=== PATIENT | female | born 1970 | race Caucasian/White ===

== ENCOUNTER 2018-02-10 14:01 | Emergency (ER) | payer OTHER ==
[2018-02-10] MEDS ORDERED: ACETAMINOPHEN 500 MG TABLET PO ONE (14:30)
--- NOTE | 2018-02-10 14:37 | Emergency Department Record ---
History of Present Illness - General Chief Complaint: Fall Injury Stated Complaint: PT FEEL IN RESTROOM Time Seen by Provider: 02/10/18 14:19 Source: Patient, RN notes reviewed Mode of Arrival: Wheelchair - History of Present Illness Initial Comments: patient fell in the bathroom in the hospital and is complaining of right shoulder pain and low back pain and the pain is located from T8 down to the sacrum. Patient denies head or neck pain. MD Complaint: Fall Onset/Timin -: Minutes(s) Fall From: Standing When Fall Occurred: Just prior to arrival Fall Witnessed: No Place Fall Occurred: Other Loss of Consciousness: None Prolonged Down Time?: No Symptoms Prior to Fall: None Location: Back Severity: Moderate Severity scale (1-10): 7 Context: Tripped/slipped - [place] Coma Scale Eye Response: (4) Open spontaneously Motor Response: (6) Obeys commands Verbal Response: (5) Oriented [place] Total: 15 - Related Data Home Medications Medication Instructions Recorded Confirmed Last Taken Citalopram Hydrobromide [Celexa] 20 mg PO DAILY 02/10/18 02/10/18 02/10/18 Hydroxychloroquine Sulfate 200 mg PO DAILY 02/10/18 02/10/18 02/10/18 [Plaquenil] Levothyroxine Sodium [Synthroid] 150 mcg PO DAILY 02/10/18 02/10/18 02/10/18 Magnesium Oxide [Magnesium] 400 mg PO DAILY 02/10/18 02/10/18 02/10/18 Metoprolol Tartrate [Lopressor] 25 mg PO DAILY 02/10/18 02/10/18 02/10/18 Previous Rx's Medication Instructions Recorded Tramadol HCl [Ultram] 50 mg PO Q8H #9 tab 02/10/18 Allergies Allergy/AdvReac Type Severity Reaction Status Date / Time shellfish derived Allergy ANAPHYLAXIS Verified 02/10/18 14:12 morphine AdvReac BEHAVIORAL Verified 02/10/18 14:12 CHANGES Travel Screening - Travel/Exposure Within Last 30 Days Have you traveled within the last 30 days?: No - Travel/Exposure Within Last Year Have you traveled outside the [place] in the last year?: Yes Location Detail:: [place] - Additonal Travel Details Have you been exposed to anyone with a communicable illness?: No - Travel Symptoms Symptom Screening: None Review of Systems Reviewed: No additional complaints except as noted below Constitutional: Reports: As per HPI. Denies: Chills, Fever, Malaise, Night sweats, Weakness, Weight change Eyes: Reports: As per HPI. Denies: Eye discharge, Eye pain, Photophobia, Vision change ENT: Reports: As per HPI. Denies: Congestion, Dental pain, Ear pain, Epistaxis , Hearing loss, Throat pain Respiratory: Reports: As per HPI. Denies: Cough, Dyspnea, Hemoptysis, Stridor, Wheezes Cardiovascular: Reports: As per HPI. Denies: Arrhythmia, Chest pain, Dyspnea on exertion, Edema, Murmurs, Orthopnea, Palpitations, Paroxysmal nocturnal dyspnea, Rheumatic Fever, Syncope Endocrine: Reports: As per HPI. Denies: Fatigue, Heat or cold intolerance, Polydipsia, Polyuria Gastrointestinal: Reports: As per HPI. Denies: Abdominal pain, Constipation, Diarrhea, Hematemesis, Hematochezia, Melena, Nausea, Vomiting Genitourinary: Reports: As per HPI. Denies: Abnormal menses, Discharge, Dyspareunia, Dysuria, Frequency, Hematuria, Incontinence, Retention, Urgency Musculoskeletal: Reports: As per HPI, Back pain, Other (right shoulder pain). Denies: Arthralgia, Gout, Joint swelling, Myalgia, Neck pain Skin: Reports: As per HPI. Denies: Bruising, Change in color, Change in hair/ nails, Lesions, Pruritus, Rash Neurological: Reports: As per HPI. Denies: Abnormal gait, Confusion, Headache, Numbness, Paresthesias, Seizure, Tingling, Tremors, Vertigo, Weakness Psychiatric: Reports: As per HPI. Denies: Anxiety, Auditory hallucinations, Depression, Homicidal thoughts, Suicidal thoughts, Visual hallucinations Hematological/Lymphatic: Reports: As per HPI. Denies: Anemia, Blood Clots, Easy bleeding, Easy bruising, Swollen glands Past Medical History - SOCIAL HISTORY Smoking Status: Never smoker Alcohol Use: None Drug Use: None - RESPIRATORY Hx Respiratory Disorders: No - CARDIOVASCULAR Hx Cardio Disorders: Yes Hx Hypertension: Yes - NEURO Hx Neuro Disorders: No - GI Hx GI Disorders: No - Hx Genitourinary Disorders: No - ENDOCRINE Hx Endocrine Disorders: Yes Hx Thyroid Disease: Yes Comment:: Lupus - MUSCULOSKELETAL Hx Musculoskeletal Disorders: Yes Hx Back Injury: Yes - PSYCH Hx Psych Problems: No - HEMATOLOGY/ONCOLOGY Hx Hematology/Oncology Disorders: No Family Medical History Any Significant Family History?: Yes Hx Diabetes: Father, Grandparents Hx HTN: Father, Grandparents Physical Exam - General General Appearance: Alert, Oriented x3, Cooperative, No acute distress - Head Head exam: Normal inspection - Eye Eye exam: Normal appearance, PERRL Pupils: Normal accommodation - ENT ENT exam: Normal exam, Mucous membranes moist, Normal external ear exam, Normal orophraynx, TM's normal bilaterally Ear exam: Normal external inspection. negative: External canal tenderness Nasal Exam: Normal inspection. negative: Discharge, Sinus tenderness Mouth exam: Normal external inspection, Tongue normal Teeth exam: Normal inspection. negative: Dental caries Throat exam: Normal inspection. negative: Tonsillar erythema, Tonsillar exudate - Neck Neck exam: Normal inspection, Full ROM. negative: Tenderness - Respiratory Respiratory exam: Normal lung sounds bilaterally. negative: Respiratory distress - Cardiovascular Cardiovascular Exam: Regular rate, Normal rhythm, Normal heart sounds - GI/Abdominal GI/Abdominal exam: Soft, Normal bowel sounds. negative: Tenderness - Rectal Rectal exam: Deferred - exam: Deferred - Extremities Extremities exam: Normal inspection, Normal capillary refill, Tenderness (right shoulder pain) - Back Back exam: Reports: Normal inspection, Full ROM, Muscle spasm, Tenderness (pain from T8 down to sacrum, mostly at L1). Denies: Rash noted - Neurological Neurological exam: Alert, Normal gait, Oriented X3, Reflexes normal - Psychiatric Psychiatric exam: Normal affect, Normal mood - Skin Skin exam: Dry, Intact, Normal color, Warm Course Vital Signs 02/10/18 14:18 Temperature 98.6 F Pulse Rate 97 H Respiratory 18 Rate Blood Pressure 171/116 Pulse Ox 98 - Reevaluation(s) Reevaluation #1: offerred patient pain medication and she only wanted tylenol 02/10/18 14:44 Medical Decision Making - Data Complexity MDM Data: X-Ray Ordered and/or Reviewed (lumbar spine degenerative changes and shoulder corcoid irregularity ,degenerative and thoracic neg for fractures) Disposition Clinical Impression: Right shoulder strain Qualifiers: Encounter type: initial encounter Qualified Code(s): S46.911A - Strain of unspecified muscle, fascia and tendon at shoulder and upper arm level, right arm , initial encounter Lumbar strain Qualifiers: Encounter type: initial encounter Qualified Code(s): S39.012A - Strain of muscle, fascia and tendon of lower back, initial encounter Thoracic myofascial strain Qualifiers: Encounter type: initial encounter Qualified Code(s): S29.019A - Strain of muscle and tendon of unspecified wall of thorax, initial encounter Disposition: Home, Self-Care Condition: (1) Good Instructions: Rotator Cuff Injury (ED), Low Back Strain (ED), Contusion in Adults (ED) Additional Instructions: follow up with family Dr in one week Prescriptions: Tramadol HCl [Ultram] 50 mg PO Q8H #9 tab Forms: Patient Portal Access Quality - Quality Measures Quality Measures: N/A - Blood Pressure Screening Does Patient Have Any of the Following: No, Active Dx of HTN Blood Pressure Classification: Hypertensive Reading Systolic Measurement: 171 Diastolic Measurement: 116 Screening for High Blood Pressure: Patient Exclusion, Hx of HTN [[id number]]
[2018-02-10] MEDS ORDERED: TRAMADOL HCL 50 MG TABLET PO ONE (15:13)
--- NOTE | 2018-02-11 14:38 | RADIOLOGY REPORT ---
EXAM: RIGHT SHOULDER HISTORY: FALL, ANTERIOR RIGHT SHOULDER PAIN. TECHNIQUE: Three views of the right shoulder were obtained. Comparison: None. FINDINGS: Minimal irregularity of the coracoid process. Otherwise no evidence to suggest fracture. No dislocation. Mild acromioclavicular joint arthrosis. Subacromial enthesophyte is noted. Right sided chest port is noted. IMPRESSION: 1. MINIMAL IRREGULARITY AT THE CORACOID PROCESS. A SUBTLE NONDISPLACED FRACTURE CANNOT BE EXCLUDED. OTHERWISE, NO ACUTE OSSEOUS FINDINGS. 2. DEGENERATIVE CHANGES OF THE ACROMIOCLAVICULAR JOINT WITH SUBACROMIAL ENTHESOPHYTE. JOB NUMBER: [id number] MTDD
--- NOTE | 2018-02-11 14:42 | RADIOLOGY REPORT ---
EXAM: LUMBAR SPINE HISTORY: FALL, BACK PAIN. TECHNIQUE: Two views of the lumbar spine were obtained. Comparison: None. FINDINGS: The lumbar vertebral body heights and alignment appear maintained. Disk space height loss with anterior end plate osteophytes at L3-L4. Multilevel facet arthrosis. Surgical clips and suture material noted in the right abdomen. IMPRESSION: LUMBAR SPINE DEGENERATIVE CHANGES WITH DISK SPACE HEIGHT LOSS AT L3-L4. JOB NUMBER: [id number] MTDD
--- NOTE | 2018-02-11 14:46 | RADIOLOGY REPORT ---
EXAM: THORACIC SPINE HISTORY: FALL, BACK PAIN. TECHNIQUE: Three views of the thoracic spine were obtained. Comparison: None. FINDINGS: A right sided port catheter device is noted; catheter tip likely near the upper superior vena cava or near the brachiocephalic junction. Right upper abdominal quadrant surgical clips are noted. Mild dextrocurvature of the thoracic spine. No definite areas of significant thoracic vertebral body height loss are appreciated. Evaluation of vertebral body heights slightly limited in the lower thoracic region due to projectional obliquity. Mild diffuse thoracic spondylosis with small anterior end plate osteophytes. IMPRESSION: OVERALL MILD MULTILEVEL THORACIC SPINE DEGENERATIVE FINDINGS. JOB NUMBER: [id number] [facility]
== END 2018-02-10 15:59 | disposition home or self-care (01) ==
LOC: ER 14:01
DX: S46.911A Strain of unspecified muscle, fascia and tendon at shoulder and upper arm level, right arm, initial encounter (principal); S39.012A Strain of muscle, fascia and tendon of lower back, initial encounter; S29.019A Strain of muscle and tendon of unspecified wall of thorax, initial encounter; I10 Essential (primary) hypertension; W01.10XA Fall on same level from slipping, tripping and stumbling with subsequent striking against unspecified object, initial encounter; Y92.238 Other place in hospital as the place of occurrence of the external cause
CPT/HCPCS: 72072; 72100; 99283; 99284